=== PATIENT | male | born 1975 | race African-American/Black ===

== ENCOUNTER 2017-05-18 15:19 | Emergency (ER) | payer OTHER ==
[2017-05-18 15:28] VITALS: BP 144/94; BMI 28.0
[2017-05-18] MEDS ORDERED: NS 1000 ML 1,000 ML IV ONE ×2 (15:33→16:30)
[2017-05-18] MEDS ORDERED: NS 1000 ML 1,000 ML ONE ×2 (15:35→16:38)
--- NOTE | 2017-05-18 15:48 | DR.GENAD ---
HPI - PCP Primary Care Physician: pdc doctor - Complaint/Symptoms Chief Complaint Doctors Comments: Patient was pulling grass all morning and now had muscle pain. Denies history of cardiopulmonary disease Chief Complaint:: PATIENT STATED THAT HE WAS OUTSIDE WORKING AND PULLING WEEDS ABOUT A HOUR AGO. PATIENT STATED THAT NOW HE IS HAVING CHEST PAIN WHEN YOU PRESS ON HIS LEFT SIDE OF CHEST. - Source History Provided: Patient - Mode of Arrival Mode of Arrival: Ambulatory - Timing Onset of Chief Complaint: 05/18/17 PMH - PMH Past Medical History: No Past Surgical History: No - Family History History of Family Medical Conditions: No - Social History Does patient currently use any type of tobacco product: No Have you used tobacco products in the last 12 months: No Type of Tobacco Use: None Does any household member use tobacco: No Alcohol Use: None Do you use any recreational Drugs:: No Lives With: Other Lives Where: [facility] - infectious screening In the last 2 months have you had wt loss of >10#?: NO Have you had fever, night sweats or hemotysis?: No Have you traveled outside the country in the last 6 months?: No Isolation: Standard ROS - Review of Systems Constitutional: Diaphoresis ENTM: No Symptoms Reported Respiratoy: No Symptoms Reported Cardiovascular: No Symptoms Reported Gastrointestinal/Abdominal: No Symptoms Reported Genitourinary: No Symptoms Reported Neurological: No Symptoms Reported Musculoskeletal: No Symptoms Reported Integumentary: No Symptoms Reported Hematologic/Lymphatic: No Symptoms Reported Endocrine: No Symptoms Reported Psychiatric: No Symptoms Reported All Other Systems: Reviewed and Negative PE - Vital Signs Vitals: Temperature 98.6 F Pulse Rate 91 Respiratory Rate 18 Blood Pressure 144/94 O2 Sat by Pulse Oximetry 100 - General General Appearance: Alert, In No Apparent Distress, Appears Intoxicated - Head Head Exam: Normal Inspection, Atraumatic - Eyes Eye exam: Normal Appearance, PERRL, EOMI - ENT ENT Exam: Normal Exam External Ear Exam: Normal External Inspection TM/Canal Exam: Bilateral Normal Nose Exam: Normal Nose Exam Mouth Exam: Normal Inspection Throat Exam: Normal Inspection - Neck Neck Exam: Normal Inspection - Chest Chest Inspection: Normal Inspection - Respiratory Respiratory Exam: Normal Lung Sounds Bilat Respiratory Exam: Bilateral Clear to Auscultation - Cardiovascular Cardiovascular Exam: Regular Rate, Normal Rhythm - Abdominal Exam Abdominal Exam: Normal Inspection, Normal Bowel Sounds Abdominal Tenderness: negative: RUQ, RLQ, LUQ, LLQ, Epigastrium, Suprapubic, Diffuse, Mild, Moderate, Severe, Other - Extremities Extremities Exam: Normal Inspection, Tenderness (generalized) - Back Back Exam: Normal Inspection - Neurologic Neurological Exam: Alert, Oriented X3, CN II-XII Intact - Psychiatric Psychiatric Exam: Normal Affect - Skin Skin Exam: Warm, Dry, Intact, Other (painful to touch) MDM - Differential Diagnosis Differential Diagnosis: Heat Exhaustion,Rhabdomyolisis Course - Reevaluation 1st: Improved ROR - Labs Reviewed Laboratory Results Reviewed?: Yes (UA: wnl) Result Diagrams: 05/18/17 15:34 05/18/17 15:34 Laboratory: WBC 12.0 X10^3/uL (3.6-10.0) H 05/18/17 15:34 RBC 5.75 X10^6/uL (4.7-6.0) 05/18/17 15:34 Hgb 14.9 g/dL (13.5-18.0) 05/18/17 15:34 Hct 43.1 % (42.0-54.0) 05/18/17 15:34 MCV 74.9 fL (80.0-100.0) L 05/18/17 15:34 MCH 25.8 pg (27.0-34.0) L 05/18/17 15:34 MCHC 34.5 g/dL (33.0-35.0) 05/18/17 15:34 RDW 13.7 % (11.6-16.5) 05/18/17 15:34 Plt Count 256 X10^3/uL (150.0-450.0) 05/18/17 15:34 Plt Count Comment Adequate (ADEQUATE) 05/18/17 15:34 MPV 8.5 fL (7.4-11.0) 05/18/17 15:34 Neut % 65.6 % (42.0-75.0) 05/18/17 15:34 Lymph % 24.9 % (21.0-51.0) 05/18/17 15:34 [place] % 6.6 % (0.0-13.0) 05/18/17 15:34 Eos % 2.3 % (0.9-2.9) 05/18/17 15:34 Baso % 0.6 % (0.2-1.0) 05/18/17 15:34 Neut # 7.8 x10^3/uL (2.2-4.8) H 05/18/17 15:34 Lymph # 3.0 X10^3/uL (1.3-2.9) H 05/18/17 15:34 [place] # 0.8 x10^3/uL (0.3-0.8) 05/18/17 15:34 Eos # 0.3 x10^3/uL (0.0-0.2) H 05/18/17 15:34 Baso # 0.1 X10^3/uL (0.0-0.1) 05/18/17 15:34 Absolute Nucleated RBC 0.1 /100WBC 05/18/17 15:34 Plt Morphology Comment Normal (NORMAL) 05/18/17 15:34 RBC Morphology Abnormal (NORMAL) 05/18/17 15:34 Poikilocytosis Slight A 05/18/17 15:34 INR Target Range - 05/18/17 15:24 INR 1.00 (0.8-1.3) 05/18/17 15:24 PTT 26.1 SECONDS (22.9-36.5) 05/18/17 15:24 PTT Comment - 05/18/17 15:24 Sodium 138 mmol/L (136-145) 05/18/17 15:34 Corrected Sodium 138 mmol/L (136-145) 05/18/17 15:34 Potassium 4.0 mmol/L (3.5-5.1) 05/18/17 15:34 Chloride 103 mmol/L (98-107) 05/18/17 15:34 Carbon Dioxide 26.9 mmol/L (21-32) 05/18/17 15:34 BUN 15 mg/dL (7-18) 05/18/17 15:34 Creatinine 1.24 mg/dL (0.70-1.30) 05/18/17 15:34 Est GFR (MDRD) Af Amer > 60 (>60) 05/18/17 15:34 Est GFR (MDRD) Non-Af > 60 (>60) 05/18/17 15:34 Glucose 114 mg/dL (65-99) H 05/18/17 15:34 Calcium 9.3 mg/dL (8.5-10.1) 05/18/17 15:34 Corrected Calcium TNP 05/18/17 15:34 Magnesium 1.9 mg/dL (1.7-2.9) 05/18/17 15:34 Total Bilirubin 0.40 mg/dL (0.2-1.0) 05/18/17 15:34 AST 16 Units/L (15-37) 05/18/17 15:34 ALT 18 Units/L (12-78) 05/18/17 15:34 Alkaline Phosphatase 151 Units/L (46-116) H 05/18/17 15:34 Creatine Kinase 330 Units/L (39-308) H 05/18/17 15:34 CK-MB (CK-2) < 1.0 ng/mL (0-4.0) 05/18/17 15:34 CK/CKMB % Calc 0.3 % (<4) 05/18/17 15:34 Troponin I < 0.02 ng/mL (0-1.5) 05/18/17 15:34 Total Protein 8.3 g/dL (6.4-8.2) H 05/18/17 15:34 Albumin 4.1 g/dL (3.4-5.0) 05/18/17 15:34 Globulin 4.2 g/dL (2.5-4.5) 05/18/17 15:34 Albumin/Globulin Ratio 1.0 Ratio (1.1-2.1) L 05/18/17 15:34 Specimen Type Clean catch urine 05/18/17 16:43 Urine Color Yellow (YELLOW) 05/18/17 16:43 Urine Appearance Hazy (CLEAR) 05/18/17 16:43 Urine pH 5.0 (5.0 - 8.0) 05/18/17 16:43 Ur Specific [place] 1.020 (1.000-1.030) 05/18/17 16:43 Urine Protein Negative (NEGATIVE) 05/18/17 16:43 Urine Glucose (UA) Negative (NEGATIVE) 05/18/17 16:43 Urine Ketones Negative (NEGATIVE) 05/18/17 16:43 Urine Occult Blood Negative (NEGATIVE) 05/18/17 16:43 Urine Nitrite Negative (NEGATIVE) 05/18/17 16:43 Urine Bilirubin Negative (NEGATIVE) 05/18/17 16:43 Urine Urobilinogen Normal (NORMAL) 05/18/17 16:43 Ur Leukocyte Esterase 1+ (NEGATIVE) 05/18/17 16:43 Urine RBC 0-2 /HPF (NEGATIVE) 05/18/17 16:43 Urine WBC 3-5 /HPF (NEGATIVE) 05/18/17 16:43 Ur Squamous Epith Cells Negative /HPF (NEGATIVE) 05/18/17 16:43 Urine Bacteria Trace /HPF (NEGATIVE) 05/18/17 16:43 Urine Mucus Few /HPF (NEGATIVE) 05/18/17 16:43 Ur Culture Indicated? No/not indicated 05/18/17 16:43 - XRAY XRAY Interpreted by: Radiologist (Chest: No acute cardiopulmonary disease) - EKG Prospect: Normal Rhythm: NSR - Diagnosis Discharge Problem: Heat cramps Qualifiers: Encounter type: initial encounter Qualified Code(s): T67.2XXA - Heat cramp, initial encounter - Discharge Plan Condition: Stable - Follow ups/Referrals Follow ups/Referrals: NFD,None [Primary Care Provider] - 3 days - Instructions
[2017-05-18 15:54] LABS: BASOPHILS # (AUTO) 0.1 X10^3/uL (0.0-0.1); BASOPHILS % (AUTO) 0.6 % (0.2-1.0); EOSINOPHILS # (AUTO) 0.3 x10^3/uL (0.0-0.2); EOSINOPHILS % (AUTO) 2.3 % (0.9-2.9); HEMATOCRIT 43.1 % (42.0-54.0); HEMOGLOBIN 14.9 g/dL (13.5-18.0); LYMPHOCYTES % (AUTO) 24.9 % (21.0-51.0); MEAN CORPUSCULAR HEMOGLOBIN 25.8 pg (27.0-34.0); MEAN CORPUSCULAR HGB CONC 34.5 g/dL (33.0-35.0); MEAN CORPUSCULAR VOLUME 74.9 fL (80.0-100.0); MEAN PLATELET VOLUME 8.5 fL (7.4-11.0); MONOCYTES # (AUTO) 0.8 x10^3/uL (0.3-0.8); MONOCYTES % (AUTO) 6.6 % (0.0-13.0); NEUTROPHILS # (AUTO) 7.8 x10^3/uL (2.2-4.8); NEUTROPHILS % (AUTO) 65.6 % (42.0-75.0); PLATELET COUNT 256 X10^3/uL (150.0-450.0); RED BLOOD COUNT 5.75 X10^6/uL (4.7-6.0); RED CELL DISTRIBUTION WIDTH 13.7 % (11.6-16.5)
--- NOTE | 2017-05-18 15:55 | RAD ---
HISTORY: 41-year-old male with chest wall pain. Study: Frontal view of the chest. Comparison: None. Findings: The trachea is midline. The cardiac silhouette is unremarkable. The lungs are clear without focal consolidation, effusion or pneumothorax. Soft tissues are unremarkable. Osseus structures are unrem arkable. IMPRESSION: 1. No acute cardiopulmonary disease. Reported By:
[2017-05-18 16:16] LABS: ALANINE AMINOTRANSFERASE 18 Units/L (12-78); ALBUMIN 4.1 g/dL (3.4-5.0); ALKALINE PHOSPHATASE 151 Units/L (46-116); ASPARTATE AMINO TRANSFERASE 16 Units/L (15-37); BLOOD UREA NITROGEN 15 mg/dL (7-18); CALCIUM 9.3 mg/dL (8.5-10.1); CARBON DIOXIDE 26.9 mmol/L (21-32); CHLORIDE 103 mmol/L (98-107); COR NA(FOR HYPERGLY) 138 mmol/L (136-145); CREATININE 1.24 mg/dL (0.70-1.30); GLUCOSE 114 mg/dL (65-99); MAGNESIUM 1.9 mg/dL (1.7-2.9); SODIUM 138 mmol/L (136-145); TOTAL PROTEIN 8.3 g/dL (6.4-8.2); eGFR BLACK RACES > 60 (>60); eGFR NON BLACK RACES > 60 (>60)
[2017-05-18 16:18] LABS: PLATELET MORPHOLOGY COMMENT NORMAL (NORMAL)
[2017-05-18 16:19] LABS: POIKILOCYTOSIS SLIGHT
[2017-05-18 16:24] LABS: CKMB % 0.3 % (<4); CREATINE KINASE 330 Units/L (39-308); CREATINE KINASE MB < 1.0 ng/mL (0-4.0); TROPONIN I < 0.02 ng/mL (0-1.5)
[2017-05-18 16:54] LABS: BILIRUBIN,URINE NEGATIVE (NEGATIVE); BLOOD/HEMOGLOBIN,URINE NEGATIVE (NEGATIVE); GLUCOSE, URINE NEGATIVE (NEGATIVE); KETONES,URINE NEGATIVE (NEGATIVE); LEUKOCYTE ESTERASE ,URINE 1+ (NEGATIVE); NITRITES,URINE NEGATIVE (NEGATIVE); PROTEIN,URINE NEGATIVE (NEGATIVE); UROBILINOGEN,URINE NORMAL (NORMAL)
[2017-05-18 17:07] LABS: APPEARANCE,URINE HAZY (CLEAR); BACTERIA,URINE TRACE /HPF (NEGATIVE); COLOR,URINE YELLOW (YELLOW); MUCUS,URINE FEW /HPF (NEGATIVE); RBC,URINE 0-2 /HPF (NEGATIVE); SQUAMOUS EPITHELIAL CELL,UR NEGATIVE /HPF (NEGATIVE)
== END 2017-05-18 17:46 | disposition home or self-care (01) ==
LOC: ER 15:28
DX: M79.1 Myalgia (principal); T67.2XXA Heat cramp, initial encounter
CPT/HCPCS: 36415; 71010; 80053; 81001; 82550; 82553; 83735; 84484; 85025; 85610; 85730; 93005; 93010; 96365; 96367; 99283; A4216; A4222